=== PATIENT | male | born 1965 | race Caucasian/White ===

== ENCOUNTER 2018-06-18 17:02 | Emergency (ER) | payer OTHER ==
[~2018-06-18] VITALS: Ht 182.9 cm; Wt 93.9 kg
[~2018-06-18 17:02] MED LIST: CRESTOR10 MG PO; HYDROCHLOROTH12.5 M1 PO; METOPROLOL SUC100 MG PO; NORCO 5-325 TA1 EAC1 PO; VIBRAMYCIN 100100 MG PO
[2018-06-18] MEDS ORDERED: ATORVASTATIN CA40 MG PO (17:16)
[2018-06-18 18:01] LABS: ABSOLUTE EOSINOPHILS 0.1 thou/uL (0.0-0.7); ABSOLUTE LYMPHOCYTES 1.5 thou/uL (0.8-5.3); ABSOLUTE MONOCYTES 0.6 thou/uL (0.0-1.2); ABSOLUTE NEUTROPHILS 5.9 thou/uL (1.6-8.1); BASOPHILS 0.3 %; EOSINOPHILS 1.3 %; HEMATOCRIT 44.9 % (42.0-52.0); LYMPHOCYTES 18.6 %; MCH 30.3 pg (26.0-34.0); MCHC 33.4 g/dL (28.0-37.0); MCV 90.8 fL (80.0-100.0); MONOCYTES 7.5 %; MPV 8.1 fl. (7.2-11.1); NUCLEATED RBCS 0 /100WBC; PLATELET COUNT* 228 thou/uL (150-400); POLYS 72.3 %; RBC 4.95 mil/uL (4.50-6.00); RDW-CV 13.2 % (10.5-14.5); WBC 8.1 thou/uL (4.0-11.0)
[2018-06-18 18:12] LABS: CALCIUM 8.8 mg/dL (8.5-10.1); POTASSIUM 3.4 mmol/L (3.5-5.1)
[2018-06-18 18:17] LABS: ALBUMIN 3.7 g/dL (3.4-5.0); TOTAL BILIRUBIN 2.1 mg/dL (<0.1-1.0); TOTAL PROTEIN 7.4 g/dL (6.4-8.2)
[2018-06-18] MEDS ORDERED: CITRATE OF MAG296 ML PO (19:11)
[2018-06-18 19:43] LABS: URINE BILIRUBIN NEGATIVE (Negative); URINE BLOOD TRACE (Negative); URINE CLARITY CLEAR; URINE COLOR YELLOW; URINE GLUCOSE-RANDOM NEGATIVE (Negative); URINE KETONES TRACE (Negative); URINE LEUKOCYTES-REFLEX NEGATIVE (Negative); URINE NITRITE-REFLEX NEGATIVE (Negative); URINE PROTEIN NEGATIVE (Negative); URINE SPECIFIC GRAVITY <= 1.005 (1.005-1.030); URINE UROBILINOGEN 0.2 E.U./dl (0.2-1.0)
[2018-06-18 20:20] VITALS: BP 137/96
== END 2018-06-18 20:20 | disposition home or self-care (01) ==
LOC: M.ERS 17:02
PROVIDERS: Nurse Practitioner Family
DX: K59.00 Constipation, unspecified (principal); Z88.0 Allergy status to penicillin

== ENCOUNTER 2020-04-13 03:25 | Emergency (ER) | payer OTHER ==
[~2020-04-13] VITALS: Ht 182.9 cm; Wt 99.8 kg
[~2020-04-13 03:25] MED LIST changes: +ATORVASTATIN CA40 MG PO; +CITRATE OF MAG296 ML PO
[2020-04-13 03:48] LABS: ABSOLUTE BASOPHILS 0.1 thou/uL (0.0-0.2); ABSOLUTE EOSINOPHILS 0.3 thou/uL (0.0-0.7); ABSOLUTE LYMPHOCYTES 3.6 thou/uL (0.8-5.3); ABSOLUTE MONOCYTES 0.8 thou/uL (0.0-1.2); ABSOLUTE NEUTROPHILS 5.3 thou/uL (1.6-8.1); BASOPHILS 0.9 %; EOSINOPHILS 2.7 %; HEMATOCRIT 44.3 % (42.0-52.0); HEMOGLOBIN 14.8 gm/dL (14.0-18.0); LYMPHOCYTES 35.5 %; MCH 29.5 pg (26.0-34.0); MCHC 33.4 g/dL (28.0-37.0); MCV 88.3 fL (80.0-100.0); MONOCYTES 7.9 %; MPV 8.5 fl. (7.2-11.1); NUCLEATED RBCS 0 /100WBC; PLATELET COUNT* 257 thou/uL (150-400); RBC 5.02 mil/uL (4.50-6.00); RDW-CV 13.6 % (10.5-14.5)
[2020-04-13 03:54] LABS: CALCIUM 9.3 mg/dL (8.5-10.1); CREATININE 1.5 mg/dL (0.6-1.3); POTASSIUM 3.5 mmol/L (3.5-5.1)
[2020-04-13 03:58] LABS: INR 0.9; PROTIME 9.8 Seconds (9.20-11.50)
[2020-04-13 03:59] LABS: ALBUMIN 3.7 g/dL (3.4-5.0); TOTAL BILIRUBIN 0.6 mg/dL (<0.1-1.0); TOTAL PROTEIN 7.6 g/dL (6.4-8.2)
[2020-04-13 06:23] VITALS: BP 134/77
--- NOTE | 2020-04-13 08:29 | EKG ---
[place] [address] ELECTROCARDIOGRAM REPORT Name: MARIE MALIK Room: [facility]#: [id number] Admission: 04/13/20 Attend Phys: Discharge: 04/13/20 Date of : 67 Date of Service: 04/13/20336 Report #: [id number] THIS REPORT FOR: //name// [facility] ED Test Date: 2020-04-13 Test Time: 03:37:07 Pat Name: MARIE MALIK Department: Room: Gender: [employer]: CHASIDY : 1965 Requested By: Alla Grossman Order Number: [id number] MD: Foster Roque Measurements Intervals [place] Rate: 101 P: 37 MO: 156 QRS: 21 QRSD: 89 T: 79 QT: 337 QTc: 437 Interpretive Statements Sinus tachycardia Abnormal R-wave progression, early transition No previous ECG available for comparison Electronically Signed On 04-13-2020 8:28:53 CDT by Foster Roque [email or web address] <ELECTRONICALLY SIGNED> By: Foster Roque MD, [facility] 04/13/20 0828 6 6 Foster Roque MD, FACC /EPI
== END 2020-04-13 06:23 | disposition home or self-care (01) ==
LOC: M.ERS 03:25
PROVIDERS: Personal Emergency Response Attendant
DX: I10 Essential (primary) hypertension (principal); E78.5 Hyperlipidemia, unspecified; Z98.890 Other specified postprocedural states; Z79.899 Other long term (current) drug therapy; Z88.0 Allergy status to penicillin; Z87.891 Personal history of nicotine dependence